=== PATIENT | female | born 1940 | race Caucasian/White ===

== ENCOUNTER 2021-04-25 14:59 | Emergency (ER) | payer MEDICARE, SELFPAY ==
[2021-04-25 15:12] VITALS: BP 150/79; PULSE 68; RESP 16; TEMP 36.8; O2SAT 98
--- NOTE | 2021-04-25 15:19 | ED.EAR ---
HPI - Ear Problem General Chief complaint: Ear Stated complaint: Ear Pain Time Seen by Provider: 04/25/21 15:19 Source: patient Mode of arrival: ambulatory History of Present Illness HPI Narrative: patient presents with left ear pain. no drainage from ear. no uri symptoms. pain to ear for last week and 1/2. MD Complaint: ear pain Location: left ear Duration: intermittent Relieving factors: nothing Exacerbating factors: nothing Discharge from ear: Reports no Related Data Home Medications Medication Instructions Recorded Confirmed amlodipine 5 mg PO DAILY 04/25/21 04/25/21 atorvastatin 40 mg PO DAILY 04/25/21 04/25/21 levothyroxine 112 mcg PO DAILY 04/25/21 04/25/21 lisinopril-hydrochlorothiazide 1 tablet PO DAILY 04/25/21 04/25/21 meloxicam 7.5 mg PO DAILY 04/25/21 04/25/21 metformin 500 mg PO BID 04/25/21 04/25/21 metoprolol tartrate 50 mg PO BID 04/25/21 04/25/21 paroxetine HCl 20 mg PO DAILY 04/25/21 04/25/21 Allergies Allergy/AdvReac Type Severity Reaction Status Date / Time No Known Drug Allergies Allergy Unknown Unknown Verified 04/25/21 15:19 Review of Systems Review of Systems: CONSTITUTIONAL: Denies fever, chills, or sweats. EYES: Denies visual changes, redness, or discharge. ENT: Denies rhinorrhea, congestion, sore throat, or otalgia. CARDIOVASCULAR: Denies chest pain, palpitations, or edema. RESPIRATORY: Denies cough or dyspnea. GASTROINTESTINAL: Denies abdominal pain, nausea, vomiting, or diarrhea. GENITOURINARY: Denies dysuria or hematuria. SKIN: Denies rash or itching. MUSCULOSKELETAL: Denies back pain, joint pain, or myalgia. NEUROLOGIC: Denies headache, numbness, or weakness. PSYCHIATRIC: Denies anxiety or depression. PMFSH Comments At time of signature, agree with nursing past medical, surgical, social and family history. There is no relevant family history pertinent to the presenting complaint Exam Narrative: GENERAL: Well-appearing, well-nourished, and in no acute distress. HEAD: Normocephalic, atraumatic. EYES: PERRLA and EOMI. ENT: Nares clear, no rhinorrhea or epistaxis. Mucous membranes moist. left canal erythema TM bulging right TM intact no erythema to canal. NECK: Supple. CHEST: Clear to auscultation. No respiratory distress. HEART: Regular rate and rhythm. No murmur heard. Normal peripheral pulses. ABDOMEN: Soft, nontender, nondistended, normal active bowel sounds. EXTREMITIES: Normal range of motion. No edema. SKIN: Warm, dry, no rash. NEURO: No focal deficits. Alert and oriented x3. Chery Coma Scale Eye Opening: Spontaneous 4 Haugen Coma Scale Motor: Obeys Commands 6 Haugen Coma Scale Verbal: Oriented 5 Haugen Coma Scale Total 15 Course Vital Signs Vital signs: Vital Signs Temperature 36.8 C 04/25/21 15:12 Pulse Rate 68 04/25/21 15:12 Respiratory Rate 16 04/25/21 15:12 Blood Pressure 150/79 H 04/25/21 15:12 Pulse Oximetry 98 04/25/21 15:12 Temperature 36.8 C 04/25/21 15:12 Pulse Rate 68 04/25/21 15:12 Respiratory Rate 16 04/25/21 15:12 Blood Pressure 150/79 H 04/25/21 15:12 Pulse Oximetry 98 04/25/21 15:12 Addressed elevated BP today. Today's blood pressure higher than recommended range. 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 Currently patient denies headache, dizziness, vision changes, CP or shortness of breath. Medical Decision Making Differential Diagnosis Differential Diagnosis: Otitis media, eustachian tube dysfunction, URI Vital Signs Vital Signs: Vital Signs Temperature 36.8 C 04/25/21 15:12 Pulse Rate 68 04/25/21 15:12 Respiratory Rate 16 04/25/21 15:12 Blood Pressure 150/79 H 04/25/21 15:12 Pulse Oximetry 98 04/25/21 15:12 Temperature 36.8 C 04/25/21 15:12 Pulse Rate 68 04/25/21 15:12 Respiratory Rate 16 04/25/21 15:12 Blood Pressure 150/79 H 04/25/21 15:12 Pulse Oximetry 98 04/25/21 15:12 Criti
[2021-04-25 15:25] VITALS: BP 150/79; PULSE 68; RESP 16; TEMP 36.8; O2SAT 98
== END 2021-04-25 15:30 | disposition home or self-care (01) ==
PROVIDERS: Emergency Provider Nurse Practitioner Family
DX: H66.92 Otitis media, unspecified, left ear (principal); E78.00 Pure hypercholesterolemia, unspecified; I10 Essential (primary) hypertension; E11.9 Type 2 diabetes mellitus without complications; E03.9 Hypothyroidism, unspecified
CPT/HCPCS: 99203; G0463

== ENCOUNTER 2022-06-08 14:54 | Emergency (ER) | payer MEDICARE, SELFPAY ==
[2022-06-08 15:33] VITALS: BP 131/69; PULSE 67; RESP 16; TEMP 36.3; O2SAT 98
--- NOTE | 2022-06-08 17:05 | ED.URI ---
HPI - URI/Sore Throat General Chief Complaint: Upper Respiratory Infection Stated Complaint: Sore Throat Time Seen by Provider: 06/08/22 17:05 Source: patient and RN notes reviewed Mode of arrival: ambulatory Limitations: no limitations History of Present Illness HPI Narrative: 81-year-old female presents concern for 3 day history of nasal congestion, sore throat, still getting stuck when she tried to swallow it this morning. She reports hoarse voice. She denies fever, aches, chills, sweats, cough, drooling MD elicited complaint: sore throat Related Data Home Medications Medication Instructions Recorded Confirmed amlodipine 5 mg tablet 5 mg PO DAILY 04/25/21 04/25/21 atorvastatin 40 mg tablet 40 mg PO DAILY 04/25/21 04/25/21 levothyroxine 112 mcg tablet 112 mcg PO DAILY 04/25/21 04/25/21 lisinopril 20 1 tablet PO DAILY 04/25/21 04/25/21 mg-hydrochlorothiazide 12.5 mg tablet meloxicam 7.5 mg tablet 7.5 mg PO DAILY 04/25/21 04/25/21 metformin 500 mg tablet 500 mg PO BID 04/25/21 04/25/21 metoprolol tartrate 50 mg tablet 50 mg PO BID 04/25/21 04/25/21 paroxetine HCl 20 mg tablet 20 mg PO DAILY 04/25/21 04/25/21 Allergies Allergy/AdvReac Type Severity Reaction Status Date / Time No Known Drug Allergies Allergy Unknown Unknown Verified 04/25/21 15:19 Review of Systems Review of Systems: CONSTITUTIONAL: Denies malaise, chills, sweats, or fever. EYES: Denies visual changes, redness, or discharge. ENT: Reports rhinorrhea, congestion, sore throat, hoarse voice. Denies sinus pain, otalgia CARDIOVASCULAR: Denies chest pain, palpitations, or edema. RESPIRATORY: Denies cough. Denies dyspnea. GASTROINTESTINAL: Denies abdominal pain, nausea, vomiting, diarrhea SKIN: Denies rash or itching. MUSCULOSKELETAL: Denies myalgia. NEUROLOGIC: Denies headache. All systems reviewed & are unremarkable except as noted in HPI and below PMFSH Comments At time of signature, agree with nursing past medical, surgical, social and family history. There is no relevant family history pertinent to the presenting complaint Exam Narrative: GENERAL: Well-appearing, well-nourished, and in no acute distress. HEAD: Normocephalic EYES: PERRLA, conjunctivae clear ENT: Nares clear, clear discharge. Mucous membranes moist. TM pearly vega with chart light reflex bilaterally; no tragal tenderness. Oropharynx erythematous without lesions. Right Tonsil enlarged with exudate, no drooling, no post tonsillar abscess visible, mild hoarseness, no trismus, uvula midline. NECK: Supple. No lymphadenopathy CHEST: Clear to auscultation, breath sounds equal. No wheezing, rhonchi, rales, or stridor. No respiratory distress, speaks in full sentences. HEART: Regular rate and rhythm. No murmur heard. SKIN: Warm, dry, no rash. NEURO: Alert and oriented x3. PSYCH: Normal mood and affect Course Course Emergency Course: Patient is aware of diagnosis, understands and agrees to treatment plan. Anticipatory guidance given. Patient agrees to follow-up as directed and is aware of reasons to seek care at the emergency department. Portions of this record may have been created with voice recognition software Level of Care: Express Care Visit Vital Signs Vital signs: Vital Signs Temperature 97.3 F L 06/08/22 15:33 Pulse Rate 67 06/08/22 15:33 Respiratory Rate 16 06/08/22 15:33 Blood Pressure 131/69 06/08/22 15:33 Pulse Oximetry 98 06/08/22 15:33 Oxygen Delivery Room Air 06/08/22 15:33 Temperature 97.3 F L 06/08/22 15:33 Pulse Rate 67 06/08/22 15:33 Respiratory Rate 16 06/08/22 15:33 Blood Pressure 131/69 06/08/22 15:33 Pulse Oximetry 98 06/08/22 15:33 Oxygen Delivery Room Air 06/08/22 15:33 Reviewed. MDM - URI/Sore Throat MDM Narrative Medical decision making narrative: Differential diagnosis considered: Giraldo virus, strep pharyngitis, allergic rhinitis, upper respiratory tract infection, sinusitis, rhinosinusitis, nasophary
== END 2022-06-08 17:15 | disposition home or self-care (01) ==
PROVIDERS: Emergency Provider Nurse Practitioner
DX: J03.90 Acute tonsillitis, unspecified (principal); Z79.1 Long term (current) use of non-steroidal anti-inflammatories (NSAID)
CPT/HCPCS: 99213; G0463